=== PATIENT | female | born 1980 | race Caucasian/White ===

== ENCOUNTER 2019-05-17 07:51 | Day surgery (SDC) | payer OTHER ==
[~2019-05-17] VITALS: Ht 167.6 cm; Wt 65.8 kg
[~2019-05-17 07:51] MED LIST: BELS1TAB4 PO; CARA1TAB6 PO; FIOR1CAP PO; MULTCAP PO; NS 1,000 ML IV ONE; OMEP40CA97 PO; PROM25TA12 PO; TIZA2CAP PO
[2019-05-17] MEDS ORDERED: LIDOCAINE 2% INJ 100 MG/5 ML SDV (FOR ANES.) As Ordered ONE (09:21)
[2019-05-17] MEDS ORDERED: propofoL 200 MG/20 ML VIAL As Ordered ONE ×2 (09:21→09:50)
--- NOTE | 2019-05-17 09:43 | ROOR ---
Patient Name: Dior Adams Procedure Date: 05/17/2019 9:23 AM Date of : 1980 Age: 39 Room: [facility] Gender: Female Note Status: Finalized Procedure: Upper Endoscopy + Biopsies Indications: Dysphagia, Heartburn Providers: Truman Cortes MD Referring MD: Dre Ritter Requesting Provider: Medicines: Monitored Anesthesia Care Complications: No immediate complications. Procedure: Pre-Anesthesia Assessment: - The heart rate, respiratory rate, oxygen saturations, blood pressure, adequacy of pulmonary ventilation, and response to care were monitored throughout the procedure. The Endoscope was introduced through the mouth, and advanced to the second part of duodenum. The upper GI endoscopy was accomplished without difficulty. The patient tolerated the procedure well. Findings: The Z-line was irregular and was found 35 cm from the incisors. Multiple biopsies were obtained with cold forceps for evaluation to rule out Murcia's Esophagus randomly at the gastroesophageal junction. A medium-sized hiatal hernia was present. Evidence of a gastric bypass was found. A gastric pouch with a small size was found. The staple line appeared intact. The gastrojejunal anastomosis was characterized by healthy appearing mucosa. This was traversed. Mucosal changes were found in the middle third of the esophagus. Biopsies were taken with a cold forceps for histology. The exam was otherwise without abnormality. Impression: - Z-line irregular, 35 cm from the incisors. - Medium-sized hiatal hernia. - Gastric bypass with a small-sized pouch and intact staple line. Gastrojejunal anastomosis characterized by healthy appearing mucosa. - Esophageal mucosal changes. Biopsied. - The examination was otherwise normal. - Multiple biopsies were obtained at the gastroesophageal junction. Recommendation: - Await pathology results. - Discharge patient to home. - Follow an antireflux regimen. - Continue present medications. - Await pathology results. - Telephone GI clinic for pathology results in 1 week. - Return to referring physician. - The findings and recommendations were discussed with the patient's family. Truman Cortes MD Truman Cortes MD 05/17/2019 9:42:36 AM Electronically signed by Truman Cortes MD Number of Addenda: 0 Note Initiated On: 05/17/2019 9:23 AM Estimated Blood Loss: Estimated blood loss: none.
[2019-05-17 10:15] VITALS: BP 127/91
== END 2019-05-17 10:19 | disposition home or self-care (01) ==
LOC: M OPP 07:51
PROVIDERS: ATTEND Internal Medicine Gastroenterology
DX: K22.8 Other specified diseases of esophagus (principal); K44.9 Diaphragmatic hernia without obstruction or gangrene; Z98.84 Bariatric surgery status; R13.10 Dysphagia, unspecified; R12 Heartburn; Z79.899 Other long term (current) drug therapy; Z88.8 Allergy status to other drugs, medicaments and biological substances

== ENCOUNTER → 2019-11-15 | Outpatient (CLI) | payer OTHER ==
[~2019-11-15] MED LIST changes: +FERR325T3 PO; -NS 1,000 ML IV ONE; +PANT40TA29 PO; +XANA0.25 PO
--- NOTE | 2019-11-16 02:35 | REP ---
DIAGNOSTIC MAMMOGRAM OF LEFT BREAST WITH LEFT BREAST ULTRASOUND: HISTORY: Palpable lump left retroareolar region. FAMILY HISTORY: Mother with breast cancer, cousin with breast cancer, and niece with breast cancer. Tyrer-zick lifetime risk of breast cancer 20.9%. No comparison study. MLO and CC views of left breast performed with 3D tomosynthesis. Additional spot compression views are performed of the left retroareolar region in multiple projections. The lump has been present for 2 weeks. There is moderately dense breast parenchyma throughout the left breast, limiting the sensitivity of the mammogram. Volpara breast density is C. I see no evidence of mass. No architectural distortion is seen. No clustered microcalcifications are seen. Real-time sonographic evaluation of left retroareolar region performed at the site of the palpable lump. No cystic or solid nodule is seen. IMPRESSION: ACR 1, negative mammogram and ultrasound left breast. Moderately dense breast parenchyma with no mammographic evidence of mass or clustered microcalcifications. No sonographic evidence of mass in the left retroareolar region. A negative mammogram and ultrasound should not deter biopsy if there is a clinically suspicious palpable mass present. Recommend the patient undergo screening mammography for the right breast, as the patient is 39 years of age and mammogram of right breast has not been performed as of yet. Recommend yearly screening mammography thereafter. Also, given the elevated lifetime risk of breast cancer over 20%, recommend supplemental screening MR of the breasts. BIRADS 1: BI-RADS/ACR category 1 mammogram. Negative Mammogram. This mammogram was interpreted with the aid of an FDA-approved computer-aided detection system. The patient states she/he had a clinical breast exam in November 2019. The patient letter being requested is M2.
== END ==
LOC: M WHC 13:03
PROVIDERS: ATTEND Family Medicine
DX: N63.20 Unspecified lump in the left breast, unspecified quadrant (principal)

== ENCOUNTER 2020-02-28 09:07 | Day surgery (SDC) | payer OTHER ==
[~2020-02-28] VITALS: Ht 167.6 cm; Wt 64.4 kg
[~2020-02-28 09:07] MED LIST changes: +NS 1,000 ML IV ONE
[2020-02-28] MEDS ORDERED: fentaNYL 100 MCG/2 ML INJECTION (J3010) As Ordered ONE (10:28)
[2020-02-28] MEDS ORDERED: LIDOCAINE 2% 100MG/5ML SDV (FOR ANES.) As Ordered ONE (10:29)
[2020-02-28] MEDS ORDERED: propofoL 500 MG/50 ML VIAL As Ordered ONE (10:30)
[2020-02-28] MEDS ORDERED: propofoL 200 MG/20 ML VIAL As Ordered ONE (11:22)
--- NOTE | 2020-02-28 11:22 | ROOR ---
Patient Name: Dior Adams Procedure Date: 02/28/2020 11:04 AM Date of : 1980 Age: 39 Room: [facility] Gender: Female Note Status: Finalized Procedure: Upper Endoscopy + Biopsies Indications: Epigastric abdominal pain, Heartburn Providers: Truman Cortes MD Referring MD: MIKE MCKEON MD Requesting Provider: Medicines: Monitored Anesthesia Care Complications: No immediate complications. Procedure: Pre-Anesthesia Assessment: - The heart rate, respiratory rate, oxygen saturations, blood pressure, adequacy of pulmonary ventilation, and response to care were monitored throughout the procedure. The Endoscope was introduced through the mouth, and advanced to the gastric stoma. The upper GI endoscopy was accomplished without difficulty. The patient tolerated the procedure well. Findings: The Z-line was variable and was found 35 cm from the incisors. Multiple biopsies were obtained with cold forceps for evaluation to rule out Murcia's Esophagus randomly. Evidence of a gastric bypass was found. A gastric pouch with a small size was found. The staple line appeared intact. The gastrojejunal anastomosis was characterized by healthy appearing mucosa. This was traversed. The [id number]-ej-[id number] limb was characterized by healthy appearing mucosa. The exam was otherwise without abnormality. Impression: - Z-line variable, 35 cm from the incisors. - Gastric bypass with a small-sized pouch and intact staple line. Gastrojejunal anastomosis characterized by healthy appearing mucosa. - The examination was otherwise normal. - Multiple biopsies were obtained. - The examination was otherwise normal. Recommendation: - Patient has a contact number available for emergencies. The signs and symptoms of potential delayed complications were discussed with the patient. Return to normal activities tomorrow. Written discharge instructions were provided to the patient. - High fiber diet. - Discharge patient to home. - Follow an antireflux regimen. - Continue present medications. - Await pathology results. - Telephone GI clinic for pathology results in 1 week. - Return to referring physician. - The findings and recommendations were discussed with the patient. Truman Cortes MD Truman Cortes MD 02/28/2020 11:21:46 AM Electronically signed by Truman Cortes MD Number of Addenda: 0 Note Initiated On: 02/28/2020 11:04 AM Estimated Blood Loss: Estimated blood loss: none.
--- NOTE | 2020-02-28 11:34 | ROOR ---
Patient Name: Dior Adams Procedure Date: 02/28/2020 11:04 AM Date of : 1980 Age: 39 Room: [facility] Gender: Female Note Status: Finalized Procedure: Total Colonoscopy to Cecum Indications: Lower abdominal pain, Upper abdominal pain, Change in bowel habits Providers: Truman Cortes MD Referring MD: MIKE MCKEON MD Requesting Provider: Medicines: Monitored Anesthesia Care Complications: No immediate complications. Procedure: Pre-Anesthesia Assessment: - The heart rate, respiratory rate, oxygen saturations, blood pressure, adequacy of pulmonary ventilation, and response to care were monitored throughout the procedure. The Colonoscope was introduced through the anus and advanced to the cecum, identified by appendiceal orifice and ileocecal valve. The colonoscopy was performed without difficulty. The patient tolerated the procedure well. The quality of the bowel preparation was excellent. Findings: The perianal and digital rectal examinations were normal. Non-bleeding internal hemorrhoids were found during retroflexion. The hemorrhoids were small and Grade I (internal hemorrhoids that do not prolapse). No other significant abnormalities were identified in a careful examination of the remainder of the colon. The exam was otherwise without abnormality on direct and retroflexion views. Impression: - Non-bleeding internal hemorrhoids. - The examination was otherwise normal on direct and retroflexion views. - No specimens collected. - The exam was otherwise normal to the cecum. Recommendation: - Patient has a contact number available for emergencies. The signs and symptoms of potential delayed complications were discussed with the patient. Return to normal activities tomorrow. Written discharge instructions were provided to the patient. - High fiber diet. - Discharge patient to home. - Continue present medications. - Repeat colonoscopy in 10 years for screening purposes. - Return to referring physician. - The findings and recommendations were discussed with the patient. Truman Cortes MD Truman Cortes MD 02/28/2020 11:34:21 AM Electronically signed by Truman Cortes MD Number of Addenda: 0 Note Initiated On: 02/28/2020 11:04 AM Estimated Blood Loss: Estimated blood loss: none.
[2020-02-28 11:55] VITALS: BP 132/86
== END 2020-02-28 12:01 | disposition home or self-care (01) ==
LOC: M OPP 09:07
PROVIDERS: ATTEND Internal Medicine Gastroenterology
DX: K64.0 First degree hemorrhoids (principal); R10.30 Lower abdominal pain, unspecified; R19.4 Change in bowel habit; K22.8 Other specified diseases of esophagus; Z98.84 Bariatric surgery status; R10.13 Epigastric pain; K21.9 Gastro-esophageal reflux disease without esophagitis; D64.9 Anemia, unspecified; Z79.899 Other long term (current) drug therapy; Z88.8 Allergy status to other drugs, medicaments and biological substances; Z87.891 Personal history of nicotine dependence
CPT/HCPCS: 43239; 45378; 88305; J3010

== ENCOUNTER 2020-08-01 09:42 | Observation (INO) | payer OTHER ==
[~2020-08-01] VITALS: Ht 167.6 cm; Wt 66.6 kg
[~2020-08-01 09:42] MED LIST changes: +LIDOCAINE 2% 100MG/5ML SDV (FOR ANES.) As Ordered ONE; +LR 1,000 ML IV ONE; +MIDAZOLAM INJ 2MG/2ML VIAL (J2250 PER 1MG) As Ordered ONE; -NS 1,000 ML IV ONE; +ONDANSETRON 4MG/2ML VIAL As Ordered ONE; +ROCURONIUM BROMIDE 50 MG/5 ML VIAL As Ordered ONE; +VITMTA PO; +dexameTHASONE 4 MG/ML 1ML VIAL (J1100 PER 1MG) As Ordered ONE; +fentaNYL 250 MCG/5 ML INJECTION (J3010) As Ordered ONE; +propofoL 200 MG/20 ML VIAL As Ordered ONE
[2020-08-01] MEDS ORDERED: SCOPOLAMINE 1MG TRANSDERMAL PATCH TOP ONE (10:45)
[2020-08-01] MEDS ORDERED: BUPIVACAINE LIPOSOME/PF 1.3% 20ML VIAL (13.3MG/ML)(EXPAREL)(C9290 PER1MG) As Ordered ONE (12:11)
[2020-08-01] MEDS ORDERED: BACITRACIN PWD 50,000 UNITS VIAL As Ordered ONE (12:12)
[2020-08-01] MEDS ORDERED: ceFAZolin 1GM VIAL (J0690 PER 500MG) As Ordered ONE (12:44)
[2020-08-01] MEDS ORDERED: ROCURONIUM BROMIDE 50 MG/5 ML VIAL As Ordered ONE (13:48)
[2020-08-01] MEDS ORDERED: ceFAZolin SOD 1 GM in D5W MINI-BAG PLUS 50 ML IV ONE (14:00)
[2020-08-01] MEDS ORDERED: ACETAMINOPHEN 1000MG 100ML IV BTL (OFIRMEV) (J0131 PER 10MG) As Ordered ONE (14:01)
[2020-08-01] MEDS ORDERED: METOCLOPRAMIDE INJ 10MG/2ML VIAL (J2765 PER 1) As Ordered ONE (14:01)
[2020-08-01] MEDS ORDERED: SUGAMMADEX SODIUM 500 MG/5 ML VIAL (BRIDION) As Ordered ONE (14:01)
[2020-08-01] MEDS ORDERED: HYDROmorphone HCL 2 MG/ML 1ML VIAL (J1170) As Ordered ONE (14:16)
--- NOTE | 2020-08-01 16:28 | POST-OPPD ---
Postoperative Procedure Note Date Of Procedure: Aug 01, 2020 PREOPERATIVE DIAGNOSIS: Panniculitis. Symptomatic midline abdominal scar POSTOPERATIVE DIAGNOSIS: same FINDINGS: Contracted scar middle abdomen, pannus, rectus muscle diathesis. Scar 40 cm PROCEDURE: Extended panniculectomy with rectus muscle plication and midabdominal scar revision. SURGEON: Dr Braga ANESTHESIA: General SPECIMENS: Pannus 623 gm, scar ESTIMATED BLOOD LOSS: 100 cc REPLACED: none DRAINS: 10 mm DHARMESH x 2 COMPLICATIONS: none POSTOPERATIVE CONDITION: stable BHAVANI BRAGA DO Aug 01, 2020 16:28
[2020-08-01] MEDS: LR 1,000 ML IV SCH (16:29)
--- NOTE | 2020-08-01 16:29 | ROOPDOC ---
[facility] Report Of Operation Report of Operation DATE OF PROCEDURE: 08/01/20 PREOPERATIVE DIAGNOSIS: Panniculitis. Symptomatic midline abdominal scar POSTOPERATIVE DIAGNOSIS: same FINDINGS: Contracted scar middle abdomen, pannus, rectus muscle diathesis. Scar 40 cm PROCEDURE: Extended panniculectomy with rectus muscle plication and midabdominal scar revision. SURGEON: Dr Braga ANESTHESIA: General SPECIMENS: Pannus 623 gm, scar ESTIMATED BLOOD LOSS: 100 cc REPLACED: none DRAINS: 10 mm DHARMESH x 2 COMPLICATIONS: none POSTOPERATIVE CONDITION: stable Procedure: This is a 40-year-old female status post significant weight loss status post gastric sleeve as well as several abdominal procedures which resulted in the midline contracted scar. Patient is scheduled for extended panniculectomy with possible rectus muscle and mid abdominal scar revision. Risks benefits and alternatives discussed with the patient in details. Informed consent confirmed and preoperative holding area. Patient was marked in upright position. She was brought into the operating room, placed in supine position, preoperative antibiotics given, sequential stockings placed in the lower calves, and then general anesthesia is induced. Grace catheter introduced in the bladder without any difficulties with yellow clear urine present. She was prepped and draped in the usual sterile fashion.Lower abdominal incision made 6 cm above the labial crease along patient's natural suprapubic crease. Incision carried out with 10 blade. Careful sharp dissection with electrocautery and PEEK cautery was done until the fascia of rectus muscle is identified. Following the musculoaponeurotic fascial plane superiorly, the abdominal skin and subcutaneous tissue are undermined. Vessels were identified throughout and either cauterized or suture ligated for hemostasis control. Infraumbilical flap was divided in the middle to aid the dissection. We continued our dissection until umbilicus was encountered. Rhomboid incision made around the umbilicus and dissection continued superiorly. Scar contracture was encountered midline therefore the whole scar tissue was excised together with attachments to the fascia. Fascia is completely intact throughout abdomen. Our dissection extended to xiphoid process superiorly and costal margins laterally. Rectus muscle evaluated and diathesis was identified 7 cm width at midline. Rectus muscle was plicated with 0 Vicryl sutures in interrupted fashion, followed by #0 barbed wire PDS running locked suture. Wound is irrigated with bacitracin and normal saline irrigation. Exparel block given into rectus muscle total 16 mL. Patient placed on placed in the reflex position and excess tissue which consists off abdominal skin and subcutaneous tissue was measured and resected using electrocautery. Mid abdominal scar was completely excised creating a vertical incision which was closed with interrupted 0 Vicryl, 3-0 Monocryl sutures, Inosorb yohana, and V lock 3-0 Monocryl suture. Patient had significant skin excess in midportion of abdomen therefore atsdy-ub-zht approach was taken to pannus resection. Total weight of the pannus 625 g. Careful hemostasis was assured. The flap was realigned and tacked with clamps. We started closure of the midline incision with deep sutures of 0 Vicryl. Subcutaneous layer closure with 3-0 Monocryl sutures and Inosorb yohana, than 3-0 Monocryl V lock suture used for subdermal closure. The mons pubis was realigned. We continued closing the lower abdominal incision with 0 Vicryl sutures for deep layer, followed by 3-0 Monocryl sutures for subcutaneous layer and Inosorb yohana, than 3-0 Monocryl V lock suture used for subdermal closure. Two10 mm Henry-Sol drains were placed through lower abdominal incision and secured in place with 3-0 Monocryl sutures. New opening was created for the umbilical stump using electrocautery. The umbilicus was brought into view and sutured in place with interrupted 3-Monocryl, 4-0 Monocryl sutures and 5-0 plain gut sutures in the interrupted fashion. Remaining Exparel was given into the lower abdominal incision and the drain area. Prinio dressing applied to lower abdominal incision, Xeroform to umbilicus, and bulky dressing throughout. Abdominal binder applied. Patient extubated in the operating room without any difficulties and transferred to recovery room in stable condition. BHAVANI BRAGA DO Aug 01, 2020 16:29
[2020-08-01] MEDS ORDERED: ACETAMINOPHEN TAB 650MG DOSE (2X325MG) PO PRN (16:30)
[2020-08-01] MEDS ORDERED: KETOROLAC TROMETHAMINE 10 MG TAB PO PRN (16:30)
[2020-08-01] MEDS ORDERED: LR 1,000 ML IV SCH (16:35)
[2020-08-01] MEDS ORDERED: MEPERIDINE INJ 25 MG/ML VIAL (J2175) IV PRN (16:35)
[2020-08-01] MEDS ORDERED: METOCLOPRAMIDE INJ 10MG/2ML VIAL (J2765 PER 1) IV PRN (16:35)
[2020-08-01] MEDS: fentaNYL 100 MCG/2 ML INJECTION (J3010) IV PRN ×8 (16:42→17:53)
[2020-08-01] MEDS ORDERED: PROMETHAZINE INJ 25 MG/ML VIAL (J2550) IV PRN (16:45)
[2020-08-01] MEDS: oxyCODONE 5MG TAB PO PRN ×2 (16:47→17:16)
[2020-08-01 18:10] VITALS: BP 116/82
[2020-08-01 18:40] VITALS: BP 123/85
[2020-08-01] MEDS: PERCOCET 5MG/325MG TAB PO PRN (19:39)
[2020-08-01 19:40] VITALS: BP 131/88
[2020-08-01] MEDS: PANTOPRAZOLE 40MG TAB (PROTONIX) PO SCH (20:29)
[2020-08-01] MEDS: PROMETHAZINE 25 MG TAB PO PRN (20:29)
[2020-08-01] MEDS: ceFAZolin SOD 1 GM in D5W MINI-BAG PLUS 50 ML IV SCH (20:29)
[2020-08-01 20:40] VITALS: BP 110/69
[2020-08-01 21:40] VITALS: BP 111/75
[2020-08-01] MEDS ORDERED: MORPHINE 2 MG/ML 1ML VIAL (J2270) IV ONE (22:40)
[2020-08-02] MEDS: PERCOCET 5MG/325MG TAB PO PRN ×6 (00:02→21:13)
[2020-08-02] MEDS: ALPRAZolam 0.25 MG TAB PO PRN ×3 (01:35→21:12)
[2020-08-02] MEDS: MORPHINE 4 MG/ML 1ML VIAL/SYRINGE (J2270) IV PRN ×3 (03:26→18:57)
[2020-08-02] MEDS: ceFAZolin SOD 1 GM in D5W MINI-BAG PLUS 50 ML IV SCH ×3 (05:08→21:11)
[2020-08-02 06:00] VITALS: BP 112/75
[2020-08-02] MEDS: LR 1,000 ML IV SCH ×2 (06:29→19:09)
[2020-08-02 08:00] VITALS: BP 113/75
[2020-08-02] MEDS: MULTIVITAMINS/MINERALS THERAP 1 TAB PO SCH (08:25)
[2020-08-02] MEDS: FERROUS SULFATE 325MG TAB PO SCH (08:25)
[2020-08-02] MEDS: PANTOPRAZOLE 40MG TAB (PROTONIX) PO SCH ×2 (08:25→21:11)
--- NOTE | 2020-08-02 10:29 | IPNPDOC ---
Subjective General Date Seen: Aug 02, 2020 Subject Chief Complaint/History The patient is a 40-year-old female admitted with a reason for visit of Panniculitis. Patient s/p extended panniculectomy, rectus muscle plication and middle abdominal scar revision. POD 1. Doing well. Pain controlled with Morphine and Percocet. Tolerating diet. Ambulated, uribe d/diamond. Current Medications Current Medications Current Medications Medications (Trade) Dose Ordered Sig/Jaymie Route PRN Reason Start Time Stop Time Status Last Admin Dose Admin Acetaminophen (Tylenol Tab) 650 mg Q6H PRN PO MILD PAIN (PS 1-4) 08/01/20 16:30 Alprazolam (Xanax) 0.25 mg Q8HP PRN PO ANXIETY/AGITATION 08/01/20 16:30 08/02/20 01:35 Cefazolin Sodium 1 gm/Dextrose 50 ml @ 100 mls/hr Q8H IV 08/01/20 21:00 08/02/20 05:08 Fentanyl Citrate (Sublimaze) 25 mcg Q5MP PRN IV PAIN LEVEL 5-10 08/01/20 16:35 08/01/20 17:53 DC 08/01/20 17:53 Ferrous Sulfate (Ferrous Sulfate) 325 mg DAILY PO 08/02/20 09:00 08/02/20 08:25 Ketorolac Tromethamine (ToRADol) 10 mg Q6HP PRN PO MODERATE PAIN (PS 5-7) 08/01/20 16:30 08/06/20 16:29 Cancel Lactated Ringer's 1,000 ml @ 75 mls/hr [id number] IV 08/01/20 16:29 08/02/20 06:29 Lactated Ringer's 1,000 ml @ 100 mls/hr Q10H IV 08/01/20 16:35 08/01/20 17:35 DC Meperidine HCl (Demerol) 12.5 mg Q5MP PRN IV SHIVERING 08/01/20 16:35 08/01/20 17:35 DC Metoclopramide HCl (REGLAN INJection) 10 mg Q6HP PRN IV NAUSEA OR VOMITING 08/01/20 16:35 08/01/20 17:35 DC Morphine Sulfate (Morphine Sulfate Inj) 4 mg Q6HP PRN IV SEVERE PAIN (PS 8-10) 08/01/20 22:45 08/02/20 03:26 Multivitamins (Theragram-M) 1 tab DAILY PO 08/02/20 09:00 08/02/20 08:25 Oxycodone HCl (Roxicodone, Oxyir) 5 mg ASDIRECTED PRN PO PAIN LEVEL 1-4 08/01/20 16:35 08/01/20 17:16 DC 08/01/20 17:16 Oxycodone/ Acetaminophen (Percocet 5mg/ 325mg Tablet) 2 tab Q4HP PRN PO PAIN LEVEL 5-7 08/01/20 16:30 08/02/20 08:26 Pantoprazole Sodium (Protonix) 40 mg BID PO 08/01/20 21:00 08/02/20 08:25 Promethazine HCl (PHENERGAN INJection) 12.5 mg Q5MP PRN IV NAUSEA OR VOMITING 08/01/20 16:45 08/01/20 17:45 DC 08/01/20 17:07 Promethazine HCl (Phenergan) 25 mg Q6HP PRN PO NAUSEA 08/01/20 16:30 08/01/20 20:29 Allergies Coded Allergies: ondansetron (Verified Allergy, Severe, breathing issues, hives and rash, 02/18/20) Objective Physical Examination Examination GENERAL APPEARANCE:Patient seen, laying in bed, awake, alert, and oriented. Comfortable, in no acute distress. SKIN: Warm and moist. LUNGS: Clear to auscultation bilaterally. No wheezing appreciated. HEART: No chest wall abnormalities. Regular rate and rhythm with no murmurs appreciated. ABDOMEN: Abdomen is soft, non-tender, non-distended. Incision intact. Umbilicus viable. DHARMESH drains with serosanguinous drainage. 33/3 cc/24hr each drain. EXTREMITIES: No edema identified. No calf tenderness. Vital Signs Vital Signs Date Time Temp Pulse Resp B/P (MAP) Pulse Ox O2 Delivery O2 Flow Rate FiO2 08/02/20 08:26 18 08/02/20 08:00 98.7 97 113/75 (88) 96 08/02/20 06:00 Nasal Cannula 1.0 I&Os I&O- Last 24 Hours up to 6 AM 08/02/20 05:59 Intake Total 2300 ml Output Total 2086 ml Balance 214 ml Impression S/p extended panniculectomy with rectus muscle plication and scar revision. Increase ambulating through the day. Pain control. Dressing changed. D/c planning if will be controlled with PO meds. Plan / VTE VTE Prophylaxis Ordered?: Yes BHAVANI BRAGA DO Aug 02, 2020 10:29
[2020-08-02] MEDS ORDERED: PERCOCET PO (10:51)
[2020-08-02] MEDS: PROMETHAZINE 25 MG TAB PO PRN (11:11)
[2020-08-02 12:00] VITALS: BP 122/75
[2020-08-02 22:00] VITALS: BP 117/79
[2020-08-03] MEDS: PERCOCET 5MG/325MG TAB PO PRN ×3 (01:22→09:35)
[2020-08-03] MEDS: ceFAZolin SOD 1 GM in D5W MINI-BAG PLUS 50 ML IV SCH (05:28)
[2020-08-03 06:46] VITALS: BP 122/81
[2020-08-03] MEDS: LR 1,000 ML IV SCH (08:29)
[2020-08-03] MEDS: FERROUS SULFATE 325MG TAB PO SCH (09:34)
[2020-08-03] MEDS: PANTOPRAZOLE 40MG TAB (PROTONIX) PO SCH (09:34)
[2020-08-03] MEDS: ALPRAZolam 0.25 MG TAB PO PRN (09:34)
[2020-08-03] MEDS: MULTIVITAMINS/MINERALS THERAP 1 TAB PO SCH (09:34)
--- NOTE | 2020-08-03 10:24 | IPNPDOC ---
Subjective General Date Seen: Aug 03, 2020 Subject Chief Complaint/History The patient is a 40-year-old female admitted with a reason for visit of Panniculitis. Patient s/p extended panniculectomy with rectus muscle plication and abdominal scar revision. POD 2. Doing well. Able to control pain with PO meds. Current Medications Current Medications Current Medications Medications (Trade) Dose Ordered Sig/Jaymie Route PRN Reason Start Time Stop Time Status Last Admin Dose Admin Acetaminophen (Tylenol Tab) 650 mg Q6H PRN PO MILD PAIN (PS 1-4) 08/01/20 16:30 Alprazolam (Xanax) 0.25 mg Q8HP PRN PO ANXIETY/AGITATION 08/01/20 16:30 08/03/20 09:34 Cefazolin Sodium 1 gm/Dextrose 50 ml @ 100 mls/hr Q8H IV 08/01/20 21:00 08/03/20 05:28 Fentanyl Citrate (Sublimaze) 25 mcg Q5MP PRN IV PAIN LEVEL 5-10 08/01/20 16:35 08/01/20 17:53 DC 08/01/20 17:53 Ferrous Sulfate (Ferrous Sulfate) 325 mg DAILY PO 08/02/20 09:00 08/03/20 09:34 Ketorolac Tromethamine (ToRADol) 10 mg Q6HP PRN PO MODERATE PAIN (PS 5-7) 08/01/20 16:30 08/06/20 16:29 Cancel Lactated Ringer's 1,000 ml @ 75 mls/hr [id number] IV 08/01/20 16:29 08/02/20 06:29 Lactated Ringer's 1,000 ml @ 100 mls/hr Q10H IV 08/01/20 16:35 08/01/20 17:35 DC Meperidine HCl (Demerol) 12.5 mg Q5MP PRN IV SHIVERING 08/01/20 16:35 08/01/20 17:35 DC Metoclopramide HCl (REGLAN INJection) 10 mg Q6HP PRN IV NAUSEA OR VOMITING 08/01/20 16:35 08/01/20 17:35 DC Morphine Sulfate (Morphine Sulfate Inj) 4 mg Q6HP PRN IV SEVERE PAIN (PS 8-10) 08/01/20 22:45 08/02/20 18:57 Multivitamins (Theragram-M) 1 tab DAILY PO 08/02/20 09:00 08/03/20 09:34 Oxycodone HCl (Roxicodone, Oxyir) 5 mg ASDIRECTED PRN PO PAIN LEVEL 1-4 08/01/20 16:35 08/01/20 17:16 DC 08/01/20 17:16 Oxycodone/ Acetaminophen (Percocet 5mg/ 325mg Tablet) 2 tab Q4HP PRN PO PAIN LEVEL 5-7 08/01/20 16:30 08/03/20 09:35 Pantoprazole Sodium (Protonix) 40 mg BID PO 08/01/20 21:00 08/03/20 09:34 Promethazine HCl (PHENERGAN INJection) 12.5 mg Q5MP PRN IV NAUSEA OR VOMITING 08/01/20 16:45 08/01/20 17:45 DC 08/01/20 17:07 Promethazine HCl (Phenergan) 25 mg Q6HP PRN PO NAUSEA 08/01/20 16:30 08/02/20 11:11 Allergies Coded Allergies: ondansetron (Verified Allergy, Severe, breathing issues, hives and rash, 02/18/20) Objective Physical Examination Examination GENERAL APPEARANCE:Patient seen, laying in bed, awake, alert, and oriented. Comfortable, in no acute distress. SKIN: Warm and moist. LUNGS: Clear to auscultation bilaterally. No wheezing appreciated. HEART: No chest wall abnormalities. Regular rate and rhythm with no murmurs appreciated. ABDOMEN: Abdomen is soft, non-tender, non-distended. Incision intact. Umbilicus viable. DHARMESH drains with serosanguinous drainage. 55/10 cc/24hr each drain. EXTREMITIES: No edema identified. No calf tenderness. Vital Signs Vital Signs Date Time Temp Pulse Resp B/P (MAP) Pulse Ox O2 Delivery O2 Flow Rate FiO2 08/03/20 09:35 18 Room Air 08/03/20 06:46 97.8 82 122/81 (95) 96 08/02/20 12:00 1.0 I&Os I&O- Last 24 Hours up to 6 AM 08/03/20 05:59 Intake Total 770 ml Output Total 1165 ml Balance -395 ml Impression S/p extended panniculectomy. Stable for discharge. Continue with DHARMESH drains, compression dressing. F/up plastic surgery next week Instructions given. Plan / VTE VTE Prophylaxis Ordered?: Yes BHAVANI BRAGA DO Aug 03, 2020 10:24
== END 2020-08-03 11:24 | disposition home or self-care (01) ==
LOC: M SDC 09:42 → M MS5PR 09:43 → M SDC 08-03 11:24
PROVIDERS: ADMIT Plastic Surgery Surgery of the Hand; ATTEND Plastic Surgery Surgery of the Hand
DX: M54.07 Panniculitis affecting regions of neck and back, lumbosacral region (principal); L90.5 Scar conditions and fibrosis of skin; M62.08 Separation of muscle (nontraumatic), other site; F41.9 Anxiety disorder, unspecified; K44.9 Diaphragmatic hernia without obstruction or gangrene; K21.9 Gastro-esophageal reflux disease without esophagitis; D50.9 Iron deficiency anemia, unspecified; G43.909 Migraine, unspecified, not intractable, without status migrainosus; T88.53XD Unintended awareness under general anesthesia during procedure, subsequent encounter; Q62.5 Duplication of ureter; Z87.442 Personal history of urinary calculi; Z88.8 Allergy status to other drugs, medicaments and biological substances; Z79.899 Other long term (current) drug therapy
CPT/HCPCS: 15830; 88300; 88302; 96365; 96366; 96376; A6024; C9290; J0131; J0690; J1100; J1170; J2250; J2270; J2405; J2765; J3010